=== PATIENT | female | born 1965 ===

== ENCOUNTER → 2016-12-11 | Outpatient (CLI) | payer BC ==
--- NOTE | 2016-12-11 12:21 | MAM ---
EXAM DESCRIPTION: Diagnostic Mammo, bilateral CLINICAL HISTORY: 51 yearsFemaleABNORMAL MAMMOGRAM. Intermittently palpable mass in the upper outer quadrant of the posterior left breast. COMPARISON: No prior examinations. No prior reports available. TECHNIQUE: Bilateral CC and MLO and ML projection full-field images, digital diagnostic mammographic technique. Digital spot compression CC and MLO projections posterior third of the upper and central right breast. CAD was utilized. FINDINGS: The breast parenchymal density pattern is: Extremely dense breast tissue, which lowers the sensitivity of mammography. The posterior central right breast is denser compared to the left. No skin thickening or nipple retraction focal asymmetry present in the 12:00 position of the posterior third of the right breast which is effaced by spot compression. No abnormal calcifications. Initial imaging of the left breast shows no mammographic abnormality in the upper outer quadrant of the posterior left breast. No focal, stellate mass or density, focal asymmetry , and no suspicious microcalcifications bilaterally. IMPRESSION: BIRD CATEGORY: 2 BENIGN Recommendations: Routine digital screening bilateral examination in one year interval from November 2016. Written communication explaining the results and follow-up will be mailed to the patient and referring care provider. According to the [employer], yearly mammograms are recommended starting at age 40 and continuing as long as a woman is in good health. Any breast change noted on a breast self-exam should be reported promptly to the patient's healthcare provider. Breast MRI is recommended for women with an approximately 20-25% or greater lifetime risk of breast cancer, including women with a strong family history of breast or ovarian cancer and women who have been treated for Hodgkin's disease. A negative mammographic report should not delay tissue diagnosis in patients with significant clinical history or physical findings. Extremely dense breast tissue limits the sensitivity of digital mammography. Electronically signed by: Norman Orantes MD 12/11/2016 12:21 PM CDT Workstation: [id number]
== END | disposition home or self-care (01) ==
LOC: MAMMO 10:38
PROVIDERS: ATTEND Obstetrics & Gynecology
DX: R92.8 Other abnormal and inconclusive findings on diagnostic imaging of breast (principal)